=== PATIENT | female | born 1990 | race Caucasian/White ===

== ENCOUNTER 2018-05-28 14:21 | Emergency (ER) | payer OTHER ==
[~2018-05-28] VITALS: Ht 160 cm; Wt 65.8 kg
[2018-05-28] MEDS ORDERED: birth control (14:28)
[2018-05-28] MEDS ORDERED: GABAPENTIN100 MG ORAL (14:28)
--- NOTE | 2018-05-28 14:30 | NUR ---
ED Nurse Note: Patient walked into ED c/o pain on the right knee. patient reports discomfort on the front of the knee, Bruises noted on the back of the right knee. patient reports that she got into chain line at the [employer] while waiting for the entrance. patient got trapped and fell.
--- NOTE | 2018-05-28 14:44 | Emergency Room Report ---
History of Present Illness General Chief Complaint: Lower Extremity Injury Source: Patient Present Illness HPI 27-year-old female patient presents the ER complaining of pain and bruising on her posterior right knee status post injury 1 day ago. Reports that [place] and attempted to step over a metal chain fence with her right knee when her left knee" gave out" and her right knee fell onto the chain. Reports pain with extension of her right knee. Reports pain with ambulation. Reports has been icing and taking Motrin for pain symptoms. Reports fell to the ground however denies pain elsewhere. Reports "tapped" the back of her head on the ground however did not lose consciousness. Denies vomiting or vision changes. Denies other aggravating or relieving factors. Denies history of bleeding disorders. Denies taking blood thinner medication. Allergies: Coded Allergies: KETOROLAC (Verified Allergy, Unknown, 05/28/18) TRAMADOL (Verified Allergy, Unknown, 05/28/18) Patient History Past Medical History: see triage record Last Menstrual Period: 05/20/18 Reviewed Nursing Documentation: PMH: Agreed; PSxH: Agreed Nursing Documentation-PMH Past Medical History: No History, Except For Hx Cardiac Problems: No - fibromyalgia Review of Systems All Other Systems: negative except mentioned in HPI Physical Exam Vital Signs Date Time Temp Pulse Resp B/P (MAP) Pulse Ox O2 Delivery O2 Flow Rate FiO2 05/28/18 14:24 98.1 77 18 140/93 96 Room Air Sp02 EP Interpretation: reviewed, normal General Appearance: well appearing, no apparent distress, alert, GCS 15, non- toxic Head: normocephalic, atraumatic, other - Negative chirinos sign, negative raccoon eyes, no skull depression, no hematoma ENT: hearing grossly normal, normal pharynx, no angioedema, normal voice, uvula midline, moist mucus membranes Neck: full range of motion Respiratory: lungs clear, normal breath sounds, no rhonchi, no respiratory distress, no accessory muscle use, no wheezing, speaking full sentences Cardiovascular #1: regular rate, rhythm, no edema Cardiovascular #2: 2+ dorsalis pedis (R), 2+ dorsalis pedis (L) Musculoskeletal: back normal, digits/nails normal, gait/station normal, normal range of motion, no calf tenderness, Ron's Sign negative, swelling - Mild swelling and ecchymosis on posterior right knee, other - NVI, cap refill less than 2 seconds, no laxity with varus or valgus stress, negative anterior posterior drawer test, tender - Posterior right knee Neurologic: alert, oriented x3, responsive, motor strength/tone normal, sensory intact Psychiatric: mood/affect normal Skin: no rash Medical Decision Making PA Attestation Dr. Lawrence is my supervising Physician whom patient management has been discussed with. Diagnostic Impression: Primary Impression: Contusion of right knee ER Course Pt. presents to the ED c/o right knee pain. Ddx considered but are not limited to fracture, sprain, strain, contusion, dislocation. No erythema, no warmth to touch, no fever, nontoxic appearing, low suspicion for septic joint. Soft compartments, no pulselessness, no pallor, no paresthesias, low suspicion for compartment syndrome at this time. Vital signs: are WNL, pt. is afebrile Ordered X-ray and pain medication. ER COURSE Provided with pain medication. Denies pain in left knee, no laxity with varus or valgus stress, no swelling or erythema, does not require x-ray at this time. An X-ray of the right knee shows negative for acute disease per the preliminary reading. Likely contusion. Jono wrap applied to the right knee was checked afterwards by me showing good alignment and support with distal neurovascular functioning intact. Declined crutches. Patient instructed on RICE method: rest, ice, compression, elevation. Patient instructed on rest, ice and heat. Patient instructed to be WBAT Contact information for orthopedic urgent care provided, follow-up with urgent care if unable to followup with primary care provider and get referral to client resolution specialist. Followup with primary care provider. Discuss referral to ortho/pain management/ PT as needed. Discuss further imaging with MRI/CT as needed. DISCHARGE: At this time pt. is stable for d/c to home. Patient is resting comfortably, in no acute distress, nontoxic appearing, talking without difficulty. Will provide printed patient care instructions, and any necessary prescriptions. Patient instructed to follow with primary care provider in 3 - 5 days and to request further follow-up as needed. Care plan and follow up instructions have been discussed with the patient prior to discharge. Take medications as directed. Patient questions asked and answered. Patient reports understanding and agreement to treatment plan. ER precautions given, patient instructed to return to ER immediately for any new or worsening of symptoms. - Please note that this Emergency Department Report was dictated using [employer] conduit layer technology software, occasionally this can lead to erroneous entry secondary to interpretation by the dictation equipment. Other X-Ray Diagnostic Results Other X-Ray Diagnostic Results : # of Views/Limited Vs Complete: 3 View Indication: Pain EP Interpretation: Yes PA Xray: Interpretation reviewed, by supervising MD, and agrees with findings. Interpretation: no dislocation, no soft tissue swelling, no fractures Impression: No acute disease PA Scribe Text Seamus Rosario PA-C Last Vital Signs Date Time Temp Pulse Resp B/P (MAP) Pulse Ox O2 Delivery O2 Flow Rate FiO2 05/28/18 14:24 98.1 77 18 140/93 96 Room Air Status: improved Disposition: HOME, SELF-CARE Condition: Stable Scripts Acetaminophen* (TYLENOL EXTRA STRENGTH*) 500 Mg Tablet 500 MG ORAL Q8H PRN for Prn Headache/Temp > 101, #30 TAB 0 Refills Prov: Kristofer Rosario 05/28/18 Patient Instructions: Contusion, Knee Pain, [id number] Additional Instructions: Patient instructed to follow up with primary care provider and discuss further referral to orthopedics/physical therapy/pain management as needed. If unable to followup with PCP, followup with orthopedic urgent care in 5-7 days , call to schedule appointment. Patient instructed on RICE method: rest, ice, compression, elevation. Patient instructed to WBAT. Take medications as directed. Patient questions asked and answered. ER precautions given, patient instructed to return to ER immediately for any new or worsening of symptoms. [facility] [address] [facility] [address] [place], [address] [email or web address] Kristofer Rosario May 28, 2018 14:44
[2018-05-28] MEDS ORDERED: TYLENOL EXTRA500 MG ORAL (15:24)
--- NOTE | 2018-05-28 15:28 | NUR ---
ER DISCHARGE NOTE: Patient is cleared to be discharged per ERMD, pt is aox4, on room air, with stable vital signs. pt was given dc and prescription instructions, pt was able to verbalize understanding, pt id band removed without complications. pt is able to ambulate with steady gait. pt took all belongings.
--- NOTE | 2018-05-28 15:35 | NUR ---
ED Nurse Note: upon cleaning the room, RN noticed a us sweater left in the room RN called Mi at [phone] spoked with her and let her know about the sweater. 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 RN placed the sweater in the belonging back, labeled the bag with pt's label, handed to the security architect JESSA for lost and found.
[2018-05-28 15:42] VITALS: BP 140/93
--- NOTE | 2018-05-28 15:47 | Diagnostic Imaging Report ---
Indications: Right knee pain Technique: Three views of the right knee Comparison: None Findings: No acute fractures. No dislocations. Joint spaces are preserved. No radiopaque foreign body. Normal mineralization. Impression: No acute process
== END 2018-05-28 15:28 | disposition home or self-care (01) ==
LOC: EMR 14:45
DX: S80.01XA Contusion of right knee, initial encounter (principal); W19.XXXA Unspecified fall, initial encounter; Y92.831 Amusement park as the place of occurrence of the external cause; M79.7 Fibromyalgia; Z88.5 Allergy status to narcotic agent
CPT/HCPCS: 99283